=== PATIENT | male | born 1945 | race Asian ===

== ENCOUNTER → 2017-09-05 | Outpatient (CLI) | payer OTHER, MEDICARE | LOC: BHFA 11:00 | PROVIDERS: ATTEND Internal Medicine Cardiovascular Disease | DX: J44.9 Chronic obstructive pulmonary disease, unspecified (principal) ==

== ENCOUNTER → 2018-03-21 | Outpatient (CLI) | payer OTHER, MEDICARE | LOC: BMCIMAGING 09:47 | PROVIDERS: ATTEND Internal Medicine | DX: N64.52 Nipple discharge (principal) ==

== ENCOUNTER → 2019-01-15 | Outpatient (CLI) | payer OTHER, MEDICARE | LOC: BMCIMAGING 10:41 | PROVIDERS: ATTEND Internal Medicine | DX: M53.82 Other specified dorsopathies, cervical region (principal); M50.31 Other cervical disc degeneration, high cervical region ==